=== PATIENT | male | born 1935 | race Asian ===

== ENCOUNTER 2017-08-07 14:37 | Inpatient (IN) | payer OTHER ==
[~2017-08-07] VITALS: Ht 160 cm; Wt 41.3 kg
[~2017-08-07 14:37] MED LIST: ACTOS30 MG PO; AGGRENOX1 CAPSULE PO; AMLODIPINE BES2.5 MG PO; ASPIR-TRIN325 M1 PO; ATACAND32 MG PO; AUGMENTIN875 MG PO; CARDURA4 MG PO; CIPRO500 M1 PO; ENABLEX15 MG PO; FINASTERIDE5 MG PO; JANUVIA25 M1 PO; LEVAQUIN750 MG PO; LOSARTAN POTASS50 MG PO; Levaquin PO; Lopressor PO
[2017-08-07 15:00] LABS: ADD MIUA? YES; BILIRUBIN NEGATIVE; BLOOD LARGE; COLOR YELLOW ((YELLOW)); GLUCOSE (STRIP) NEGATIVE; KETONES NEGATIVE; LEUKOCYTES LARGE; NITRITE POSITIVE; PROTEIN (STRIP) 100; SPECIFIC GRAVITY 1.019 (1.000-1.030); UROBILINOGEN 0.2 MG/DL (0.2-1.0)
[2017-08-07 15:14] LABS: BACTERIA 3+ /HPF; CASTS PRESENT /LPF; CRYSTALS NONE SEEN; EPITHELIAL CELLS 1+ /HPF; HYALINE CASTS 0-5 /LPF; MUCUS 1+ /LPF; RED BLOOD CELLS TNTC /HPF (0-5); UCUL ADDED? YES; WHITE BLOOD CELLS TNTC /HPF (0-5)
[2017-08-07 15:49] LABS: HEMATOCRIT 28.4 % (38.0-50.0); MCHC 32.4 G/DL (30.0-36.0); MCV 89.6 FL (86-99); MEAN PLAT.VOLUME 10.2 uM^3 (9.0-12.4); PLATELET COUNT 167 K/uL (156-360); RBC DIS.WIDTH-CV 13.2 % (11.8-14.6); RBC DIS.WIDTH-SD 43.3 % (39-53); RED BLOOD COUNT 3.17 M/uL (4.00-5.50); WHITE BLOOD COUNT 9.1 K/uL (4.1-10.2)
[2017-08-07 15:57] LABS: CHLORIDE 108 mEq/L (99-109); POTASSIUM 3.5 mEq/L (3.7-5.4); SODIUM 144 mEq/L (136-147)
[2017-08-07 15:58] LABS: GLUCOSE 111 mg/dL (70-99)
[2017-08-07 16:00] LABS: ANION GAP 11 MEQ/L (2-14)
[2017-08-07 16:02] LABS: GFR ESTIMATE (CALCULATED) 41 mL/min/
[2017-08-07 16:03] LABS: UREA NITROGEN (BUN) 31 mg/dL (9-23)
[2017-08-07] MEDS ORDERED: TRAMADOL HCL50 MG PO (17:53)
[2017-08-07] MEDS ORDERED: ATARAX,VISTARIL25 MG PO (17:53)
[2017-08-07] MEDS ORDERED: DIPYRIDAMOLE75 MG PO (17:53)
[2017-08-07] MEDS ORDERED: MYRBETRIQ50 MG PO (17:53)
[2017-08-07] MEDS ORDERED: MIRALAX255 GM PO (17:53)
[2017-08-07 23:43] VITALS: BP 158/84
[2017-08-08 03:38] VITALS: BP 159/75
[2017-08-08 06:47] LABS: MCH 28.7 PG (29.0-34.0); MCHC 31.7 G/DL (30.0-36.0); MCV 90.3 FL (86-99); MEAN PLAT.VOLUME 10.7 uM^3 (9.0-12.4); PLATELET COUNT 174 K/uL (156-360); RBC DIS.WIDTH-CV 13.4 % (11.8-14.6); RBC DIS.WIDTH-SD 44.2 % (39-53); RED BLOOD COUNT 3.21 M/uL (4.00-5.50); WHITE BLOOD COUNT 9.7 K/uL (4.1-10.2)
[2017-08-08 07:12] LABS: ANION GAP 11 MEQ/L (2-14); CHLORIDE 108 MEQ/L (99-109); GFR ESTIMATE (CALCULATED) 56 mL/min/; GLUCOSE 119 mg/dL (70-99); POTASSIUM 3.5 MEQ/L (3.7-5.4); SAMPLE HEMOLYSIS CHECK 0; SAMPLE ICTERIC CHECK 0; SAMPLE LIPEMIA CHECK 0; SODIUM 145 MEQ/L (136-147); UREA NITROGEN (BUN) 25 mg/dL (9-23)
[2017-08-08 07:44] LABS: ABS NEUTROPHIL COUNT 8.8; ANISOCYTOSIS 1+; BAND NEUTROPHILS 22.6 % (0-8.0); BASOPHILS 0.9 %; EOSINOPHIL ABS CT 0; INSTRUMENT ABS NEUTROPHIL CT 8.6 K/uL; OVALOCYTES 1+; PLAT.SUFFICIENCY ADEQUATE; POIKILOCYTOSIS 1+; SEG.NEUTROPHILS 67.8 % (46.0-76.0)
[2017-08-08 08:08] LABS: MAGNESIUM 2.3 mg/dl (1.3-2.7)
[2017-08-08 08:24] VITALS: BP 170/82
[2017-08-08 12:37] VITALS: BP 130/87
[2017-08-08 12:51] LABS: POINT-OF-CARE METER ID UU14208753
[2017-08-08 16:18] LABS: POINT-OF-CARE METER ID UU14208753
[2017-08-08 16:24] VITALS: BP 134/77
[2017-08-08 19:31] VITALS: BP 187/83
[2017-08-08 19:41] VITALS: BP 150/80
[2017-08-08 21:53] LABS: POINT-OF-CARE METER ID UU14188577
[2017-08-09] VITALS (7 sets, daily range): BP systolic 133–178; BP diastolic 65–91
[2017-08-09 06:29] LABS: HEMATOCRIT 26.7 % (38.0-50.0); MCH 29.9 PG (29.0-34.0); MCHC 32.6 G/DL (30.0-36.0); MCV 91.8 FL (86-99); MEAN PLAT.VOLUME 10.1 uM^3 (9.0-12.4); PLATELET COUNT 145 K/uL (156-360); RBC DIS.WIDTH-CV 13.6 % (11.8-14.6); RBC DIS.WIDTH-SD 45.9 % (39-53); RED BLOOD COUNT 2.91 M/uL (4.00-5.50); WHITE BLOOD COUNT 11.4 K/uL (4.1-10.2)
[2017-08-09 06:50] LABS: ANION GAP 9 MEQ/L (2-14); CHLORIDE 112 MEQ/L (99-109); POTASSIUM 3.5 MEQ/L (3.7-5.4); SAMPLE HEMOLYSIS CHECK 0; SAMPLE ICTERIC CHECK 0; SAMPLE LIPEMIA CHECK 0; SODIUM 147 MEQ/L (136-147)
[2017-08-09 06:55] LABS: GFR ESTIMATE (CALCULATED) 52 mL/min/; GLUCOSE 128 mg/dL (70-99); UREA NITROGEN (BUN) 31 mg/dL (9-23)
[2017-08-09 06:59] LABS: POINT-OF-CARE METER ID UU14188577
[2017-08-09 11:41] LABS: POINT-OF-CARE METER ID UU14117124
[2017-08-09 16:31] LABS: POINT-OF-CARE METER ID UU14117124
[2017-08-09 16:38] LABS: MAGNESIUM 2.3 mg/dl (1.3-2.7); POTASSIUM 3.4 MEQ/L (3.7-5.4)
[2017-08-09 21:42] LABS: POINT-OF-CARE METER ID UU14208753
[2017-08-10 03:43] VITALS: BP 170/86
[2017-08-10 07:00] LABS: POINT-OF-CARE METER ID UU14117124
[2017-08-10 08:23] VITALS: BP 162/80
[2017-08-10 10:01] LABS: ANION GAP 10 MEQ/L (2-14); CHLORIDE 114 MEQ/L (99-109); GFR ESTIMATE (CALCULATED) > 59 mL/min/; GLUCOSE 178 mg/dL (70-99); POTASSIUM 3.3 MEQ/L (3.7-5.4); SAMPLE HEMOLYSIS CHECK 0; SAMPLE ICTERIC CHECK 0; SAMPLE LIPEMIA CHECK 0; SODIUM 151 MEQ/L (136-147); UREA NITROGEN (BUN) 25 mg/dL (9-23)
[2017-08-10 11:18] LABS: POINT-OF-CARE METER ID UU14208753
[2017-08-10 15:12] VITALS: BP 163/78
[2017-08-10 16:22] LABS: POINT-OF-CARE METER ID UU14117124
[2017-08-10 20:27] VITALS: BP 172/83
[2017-08-10 21:39] LABS: POINT-OF-CARE METER ID UU14188577
[2017-08-10 23:20] VITALS: BP 170/88
[2017-08-11] VITALS (7 sets, daily range): BP systolic 140–200; BP diastolic 77–97
[2017-08-11 06:13] LABS: EOSINOPHIL (%) 0.8 % (0-5); EOSINOPHIL COUNT 0.1 K/uL (0-0.3); HEMATOCRIT 27.4 % (38.0-50.0); IMMATURE GRANULOCYTE COUNT 0.1 K/uL; INSTRUMENT ABS NEUTROPHIL CT 6.9 K/uL; LYMPHOCYTE COUNT 0.6 K/uL (1.0-2.8); MCH 29.8 PG (29.0-34.0); MCHC 32.1 G/DL (30.0-36.0); MCV 92.9 FL (86-99); MEAN PLAT.VOLUME 10.7 uM^3 (9.0-12.4); MONOCYTE (%) 9.3 % (3-12); MONOCYTE COUNT 0.8 K/uL (0-0.8); NEUTROPHIL (%) 82.3 % (45-76); NEUTROPHIL COUNT 6.9 K/uL (1.8-6.4); NRBC (%) 0.2 /100 WBC (0-0); PLATELET COUNT 160 K/uL (156-360); RBC DIS.WIDTH-CV 13.4 % (11.8-14.6); RED BLOOD COUNT 2.95 M/uL (4.00-5.50); WHITE BLOOD COUNT 8.4 K/uL (4.1-10.2)
[2017-08-11 06:29] LABS: ANION GAP 11 MEQ/L (2-14); CHLORIDE 111 MEQ/L (99-109); POTASSIUM 3.2 MEQ/L (3.7-5.4); SAMPLE HEMOLYSIS CHECK 0; SAMPLE ICTERIC CHECK 0; SAMPLE LIPEMIA CHECK 0; SODIUM 147 MEQ/L (136-147)
[2017-08-11 06:34] LABS: GFR ESTIMATE (CALCULATED) > 59 mL/min/; GLUCOSE 163 mg/dL (70-99); UREA NITROGEN (BUN) 18 mg/dL (9-23)
[2017-08-11 06:40] LABS: POINT-OF-CARE METER ID UU14117124
[2017-08-11 11:26] LABS: POINT-OF-CARE METER ID UU14208753
[2017-08-11 21:32] LABS: POINT-OF-CARE METER ID UU14117124; POINT-OF-CARE USER ID AHSUCEG
[2017-08-12] VITALS (7 sets, daily range): BP systolic 145–184; BP diastolic 77–88
[2017-08-12 06:38] LABS: POINT-OF-CARE METER ID UU14208753
[2017-08-12 10:01] LABS: EOSINOPHIL (%) 0.5 % (0-5); HEMATOCRIT 26.6 % (38.0-50.0); IMMATURE GRANULOCYTE COUNT 0.1 K/uL; INSTRUMENT ABS NEUTROPHIL CT 6.6 K/uL; LYMPHOCYTE COUNT 0.8 K/uL (1.0-2.8); MCH 28.5 PG (29.0-34.0); MCHC 31.6 G/DL (30.0-36.0); MCV 90.2 FL (86-99); MEAN PLAT.VOLUME 10.4 uM^3 (9.0-12.4); MONOCYTE (%) 9.8 % (3-12); MONOCYTE COUNT 0.8 K/uL (0-0.8); NEUTROPHIL (%) 79.3 % (45-76); NEUTROPHIL COUNT 6.6 K/uL (1.8-6.4); PLATELET COUNT 151 K/uL (156-360); RBC DIS.WIDTH-CV 13.2 % (11.8-14.6); RBC DIS.WIDTH-SD 43.5 % (39-53); RED BLOOD COUNT 2.95 M/uL (4.00-5.50); WHITE BLOOD COUNT 8.4 K/uL (4.1-10.2)
[2017-08-12 10:47] LABS: ANION GAP 6 MEQ/L (2-14); CHLORIDE 108 MEQ/L (99-109); GFR ESTIMATE (CALCULATED) > 59 mL/min/; GLUCOSE 158 mg/dL (70-99); POTASSIUM 3.3 MEQ/L (3.7-5.4); SAMPLE HEMOLYSIS CHECK 0; SAMPLE ICTERIC CHECK 0; SAMPLE LIPEMIA CHECK 0; SODIUM 141 MEQ/L (136-147); UREA NITROGEN (BUN) 16 mg/dL (9-23)
[2017-08-12 10:57] LABS: IRON 11 MCG/DL (35-150)
[2017-08-13 04:15] VITALS: BP 149/74
[2017-08-13 07:01] LABS: EOSINOPHIL (%) 0.9 % (0-5); EOSINOPHIL COUNT 0.1 K/uL (0-0.3); HEMATOCRIT 25.7 % (38.0-50.0); IMMATURE GRANULOCYTE COUNT 0.1 K/uL; INSTRUMENT ABS NEUTROPHIL CT 6.3 K/uL; LYMPHOCYTE COUNT 0.6 K/uL (1.0-2.8); MCH 30.1 PG (29.0-34.0); MCHC 33.5 G/DL (30.0-36.0); MCV 89.9 FL (86-99); MEAN PLAT.VOLUME 10.2 uM^3 (9.0-12.4); MONOCYTE (%) 8.2 % (3-12); MONOCYTE COUNT 0.6 K/uL (0-0.8); NEUTROPHIL (%) 82.5 % (45-76); NEUTROPHIL COUNT 6.3 K/uL (1.8-6.4); PLATELET COUNT 152 K/uL (156-360); RBC DIS.WIDTH-CV 13.3 % (11.8-14.6); RED BLOOD COUNT 2.86 M/uL (4.00-5.50); WHITE BLOOD COUNT 7.7 K/uL (4.1-10.2)
[2017-08-13 07:29] LABS: POINT-OF-CARE METER ID UU14117124
[2017-08-13 07:30] LABS: ANION GAP 5 MEQ/L (2-14); CHLORIDE 109 MEQ/L (99-109); GFR ESTIMATE (CALCULATED) > 59 mL/min/; GLUCOSE 205 mg/dL (70-99); SAMPLE HEMOLYSIS CHECK 0; SAMPLE ICTERIC CHECK 0; SAMPLE LIPEMIA CHECK 0; SODIUM 139 MEQ/L (136-147); UREA NITROGEN (BUN) 20 mg/dL (9-23)
[2017-08-13 07:34] LABS: POTASSIUM 4.4 MEQ/L (3.7-5.4)
[2017-08-13 07:48] VITALS: BP 157/74
[2017-08-13 11:31] LABS: POINT-OF-CARE METER ID UU14188577
[2017-08-13 11:33] VITALS: BP 129/64
[2017-08-13 15:17] VITALS: BP 111/58
[2017-08-13 16:10] LABS: POINT-OF-CARE METER ID UU14188577
[2017-08-13 19:48] VITALS: BP 148/65
[2017-08-13 22:28] LABS: POINT-OF-CARE METER ID UU14117124
[2017-08-13 23:27] VITALS: BP 149/69
[2017-08-14 00:24] LABS: POINT-OF-CARE METER ID UU14117124
[2017-08-14 06:18] LABS: POINT-OF-CARE METER ID UU14117124
[2017-08-14 07:48] VITALS: BP 170/75
[2017-08-14 11:45] VITALS: BP 153/73
[2017-08-14 16:55] VITALS: BP 160/75
[2017-08-14 19:31] VITALS: BP 163/73
[2017-08-14 21:59] LABS: POINT-OF-CARE METER ID UU14188577
[2017-08-14 23:19] VITALS: BP 150/82
[2017-08-15 00:30] LABS: POINT-OF-CARE METER ID UU14117124
[2017-08-15 06:53] LABS: POINT-OF-CARE METER ID UU14188577
[2017-08-15 08:09] VITALS: BP 160/79
[2017-08-15 09:44] LABS: EOSINOPHIL (%) 2.6 % (0-5); EOSINOPHIL COUNT 0.2 K/uL (0-0.3); HEMATOCRIT 24.4 % (38.0-50.0); IMMATURE GRANULOCYTE (%) 0.8 % (0.0-0.7); IMMATURE GRANULOCYTE COUNT 0.1 K/uL; INSTRUMENT ABS NEUTROPHIL CT 5.2 K/uL; LYMPHOCYTE COUNT 0.7 K/uL (1.0-2.8); MCH 28.8 PG (29.0-34.0); MEAN PLAT.VOLUME 9.9 uM^3 (9.0-12.4); MONOCYTE (%) 6.1 % (3-12); MONOCYTE COUNT 0.4 K/uL (0-0.8); NEUTROPHIL (%) 80.2 % (45-76); NEUTROPHIL COUNT 5.2 K/uL (1.8-6.4); RBC DIS.WIDTH-CV 13.6 % (11.8-14.6); RBC DIS.WIDTH-SD 44.6 % (39-53); RED BLOOD COUNT 2.71 M/uL (4.00-5.50); WHITE BLOOD COUNT 6.4 K/uL (4.1-10.2)
[2017-08-15 10:00] LABS: ANION GAP 7 MEQ/L (2-14); CHLORIDE 109 MEQ/L (99-109); GFR ESTIMATE (CALCULATED) > 59 mL/min/; GLUCOSE 185 mg/dL (70-99); POTASSIUM 3.7 MEQ/L (3.7-5.4); SAMPLE HEMOLYSIS CHECK 0; SAMPLE ICTERIC CHECK 0; SAMPLE LIPEMIA CHECK 0; SODIUM 144 MEQ/L (136-147); UREA NITROGEN (BUN) 16 mg/dL (9-23)
[2017-08-15 10:10] LABS: PLATELET COUNT 225 K/uL (156-360)
[2017-08-15 12:34] LABS: POINT-OF-CARE METER ID UU14208753
[2017-08-15 18:18] LABS: POINT-OF-CARE METER ID UU14188577
[2017-08-15 23:57] VITALS: BP 153/72
[2017-08-16 07:30] VITALS: BP 136/67
[2017-08-16 08:03] VITALS: BP 127/67
[2017-08-16 11:23] LABS: HEMATOCRIT 24.5 % (38.0-50.0); MCH 29.2 PG (29.0-34.0); MCHC 32.2 G/DL (30.0-36.0); MCV 90.4 FL (86-99); MEAN PLAT.VOLUME 9.9 uM^3 (9.0-12.4); PLATELET COUNT 260 K/uL (156-360); RBC DIS.WIDTH-CV 13.8 % (11.8-14.6); RBC DIS.WIDTH-SD 45.1 % (39-53); RED BLOOD COUNT 2.71 M/uL (4.00-5.50)
[2017-08-16 11:32] VITALS: BP 152/74
[2017-08-16 12:48] LABS: POINT-OF-CARE METER ID UU14117124
[2017-08-16 12:49] LABS: ALKALINE PHOSPHATASE 79 IU/L (3-129); ANION GAP 8 MEQ/L (2-14); CHLORIDE 107 MEQ/L (99-109); GFR ESTIMATE (CALCULATED) > 59 mL/min/; GLUCOSE 143 mg/dL (70-99); POTASSIUM 3.9 MEQ/L (3.7-5.4); SAMPLE HEMOLYSIS CHECK 0; SAMPLE ICTERIC CHECK 0; SAMPLE LIPEMIA CHECK 0; SODIUM 143 MEQ/L (136-147); TOTAL BILIRUBIN 0.3 MG/DL (0.0-1.0); UREA NITROGEN (BUN) 16 mg/dL (9-23)
[2017-08-16 16:11] VITALS: BP 151/71
[2017-08-16 18:18] LABS: POINT-OF-CARE METER ID UU14117124
[2017-08-16 20:41] LABS: HEMATOCRIT 24.1 % (38.0-50.0); MCV 91.3 FL (86-99)
[2017-08-17 00:15] VITALS: BP 121/62
[2017-08-17 07:06] LABS: EOSINOPHIL (%) 1.8 % (0-5); EOSINOPHIL COUNT 0.2 K/uL (0-0.3); HEMATOCRIT 25.4 % (38.0-50.0); IMMATURE GRANULOCYTE (%) 0.8 % (0.0-0.7); IMMATURE GRANULOCYTE COUNT 0.1 K/uL; INSTRUMENT ABS NEUTROPHIL CT 7.2 K/uL; LYMPHOCYTE COUNT 0.7 K/uL (1.0-2.8); MCH 28.6 PG (29.0-34.0); MCHC 31.5 G/DL (30.0-36.0); MCV 90.7 FL (86-99); MEAN PLAT.VOLUME 10.4 uM^3 (9.0-12.4); MONOCYTE (%) 6.1 % (3-12); MONOCYTE COUNT 0.5 K/uL (0-0.8); NEUTROPHIL (%) 82.6 % (45-76); NEUTROPHIL COUNT 7.2 K/uL (1.8-6.4); PLATELET COUNT 291 K/uL (156-360); RBC DIS.WIDTH-CV 13.5 % (11.8-14.6); RBC DIS.WIDTH-SD 44.9 % (39-53); WHITE BLOOD COUNT 8.7 K/uL (4.1-10.2)
[2017-08-17 07:21] VITALS: BP 166/86
[2017-08-17 07:29] LABS: ANION GAP 5 MEQ/L (2-14); CHLORIDE 104 MEQ/L (99-109); GFR ESTIMATE (CALCULATED) > 59 mL/min/; GLUCOSE 183 mg/dL (70-99); POTASSIUM 3.8 MEQ/L (3.7-5.4); SAMPLE HEMOLYSIS CHECK 0; SAMPLE ICTERIC CHECK 0; SAMPLE LIPEMIA CHECK 0; SODIUM 140 MEQ/L (136-147); UREA NITROGEN (BUN) 16 mg/dL (9-23)
[2017-08-17 07:48] LABS: POINT-OF-CARE METER ID UU14208753
[2017-08-17 09:44] LABS: POINT-OF-CARE METER ID UU14208753
[2017-08-17 12:53] LABS: POINT-OF-CARE METER ID UU14117124
[2017-08-17] MEDS ORDERED: AMOX TR-K400 MG/5 M GT (14:33)
== END 2017-08-17 17:30 | disposition home health service (06) | DRG 871 ==
LOC: EME 14:37 → 3EAST 21:15 → EDOF 21:15 → ENRESERV 21:17 → 3EAST 22:55
PROVIDERS: Hospitalist; Internal Medicine; Physician Assistant
PROC: 0DH63UZ Insertion of Feeding Device into Stomach, Percutaneous Approach (ICD-10-PCS; principal; 2017-08-11)
DX: A41.9 Sepsis, unspecified organism (principal); J69.0 Pneumonitis due to inhalation of food and vomit; N17.9 Acute kidney failure, unspecified; G93.41 Metabolic encephalopathy; N10 Acute pyelonephritis; E86.0 Dehydration; T83.511A Infection and inflammatory reaction due to indwelling urethral catheter, initial encounter; L89.322 Pressure ulcer of left buttock, stage 2; I69.320 Aphasia following cerebral infarction; E87.6 Hypokalemia; E43 Unspecified severe protein-calorie malnutrition; D50.9 Iron deficiency anemia, unspecified; R13.10 Dysphagia, unspecified; Z68.1 Body mass index [BMI] 19.9 or less, adult; J02.0 Streptococcal pharyngitis; I69.354 Hemiplegia and hemiparesis following cerebral infarction affecting left non-dominant side; E11.9 Type 2 diabetes mellitus without complications; Y84.6 Urinary catheterization as the cause of abnormal reaction of the patient, or of later complication, without mention of misadventure at the time of the procedure; Z51.5 Encounter for palliative care; R64 Cachexia; Z66 Do not resuscitate; I11.9 Hypertensive heart disease without heart failure; E87.0 Hyperosmolality and hypernatremia; N31.9 Neuromuscular dysfunction of bladder, unspecified; I47.2 Ventricular tachycardia; N40.0 Benign prostatic hyperplasia without lower urinary tract symptoms; Z74.01 Bed confinement status; Z87.891 Personal history of nicotine dependence; Z87.01 Personal history of pneumonia (recurrent)
CPT/HCPCS: 71010; 80048; 80053; 80170; 81003; 82607; 82746; 82948; 83540; 83605; 83735; 84132 91; 84466; 85014; 85018; 85025; 85027; 87040; 87086; 92526 GN; 92610 GN; 93005; 94799; 99281; 99285; J0360; J0696; J1580; J1644; J1815; J2543; J3480; J7030; J7050; J7070; J7120; Q0138

== ENCOUNTER 2018-03-30 14:40 | Inpatient (IN) | payer OTHER ==
[~2018-03-30] VITALS: Ht 162.6 cm; Wt 49.6 kg
[~2018-03-30 14:40] MED LIST changes: +AMOX TR-K400 MG/5 M GT; +ATARAX,VISTARIL25 MG PO; +DIPYRIDAMOLE75 MG PO; +MIRALAX255 GM PO; +MYRBETRIQ50 MG PO; +TRAMADOL HCL50 MG PO
[2018-03-30 15:31] LABS: BASOPHIL (%) 0.3 % (0-1); BASOPHIL COUNT 0.1 K/uL (0-0.1); EOSINOPHIL (%) 0.6 % (0-5); EOSINOPHIL COUNT 0.1 K/uL (0-0.3); HEMATOCRIT 32.8 % (38.0-50.0); HEMOGLOBIN 11.3 G/DL (12.5-16.6); IMMATURE GRANULOCYTE (%) 0.6 % (0.0-0.7); LYMPHOCYTE COUNT 0.6 K/uL (1.0-2.8); MCH 30.3 PG (29.0-34.0); MCHC 34.5 G/DL (30.0-36.0); MCV 87.9 FL (86-99); MONOCYTE (%) 8.7 % (3-12); MONOCYTE COUNT 1.3 K/uL (0-0.8); NEUTROPHIL (%) 85.8 % (45-76); NEUTROPHIL COUNT 13.1 K/uL (1.8-6.4); PLATELET COUNT 228 K/uL (156-360); RBC DIS.WIDTH-CV 14.1 % (11.8-14.6); RBC DIS.WIDTH-SD 45.2 % (39-53); RED BLOOD COUNT 3.73 M/uL (4.00-5.50); WHITE BLOOD COUNT 15.2 K/uL (4.1-10.2)
[2018-03-30 15:49] LABS: CHLORIDE 99 mEq/L (99-109); POTASSIUM 3.5 mEq/L (3.7-5.4); SODIUM 138 mEq/L (136-147)
[2018-03-30 15:50] LABS: GLUCOSE 144 mg/dL (70-99)
[2018-03-30 15:54] LABS: CREATININE 0.9 mg/dL (0.6-1.3); GFR ESTIMATE (CALCULATED) > 59 mL/min/ (58.99-99999)
[2018-03-30 15:55] LABS: UREA NITROGEN (BUN) 24 mg/dL (9-23)
[2018-03-30 16:21] LABS: APPEARANCE SL CLOUDY ((CLEAR)); COLOR STRAW ((YELLOW)); GLUCOSE (STRIP) NEGATIVE; KETONES NEGATIVE; LEUKOCYTES MODERATE; NITRITE NEGATIVE; PH, URINE 7.5 (5-8); PROTEIN (STRIP) 100; UROBILINOGEN 0.2 MG/DL (0.2-1.0)
[2018-03-30 16:22] LABS: BILIRUBIN NEGATIVE; BLOOD LARGE
[2018-03-30 16:54] LABS: RED BLOOD CELLS RARE /HPF (0-5)
[2018-03-30 16:58] LABS: BACTERIA 1+ /HPF; UCUL ADDED? YES
[2018-03-30 16:59] LABS: AMORPHOUS PHOSPHATE CRYSTALS 2+; EPITHELIAL CELLS RARE /HPF; HYALINE CASTS RARE /LPF; MUCUS 1+ /LPF
[2018-03-30] MEDS ORDERED: BYDUREON2 MG SC (17:28)
[2018-03-30] MEDS ORDERED: TYLENOL EXTRA500 MG PO ×2 (17:28→17:29)
[2018-03-30] MEDS ORDERED: ULTRAM50 MG PO (17:29)
[2018-03-30 18:27] VITALS: BP 105/60
[2018-03-30 21:08] VITALS: BP 141/81
[2018-03-30 23:36] VITALS: BP 127/70
[2018-03-31 03:44] VITALS: BP 136/69
[2018-03-31 05:17] LABS: HEMATOCRIT 29.6 % (38.0-50.0); HEMOGLOBIN 9.7 G/DL (12.5-16.6); MCH 29.4 PG (29.0-34.0); MCHC 32.8 G/DL (30.0-36.0); MCV 89.7 FL (86-99); PLATELET COUNT 189 K/uL (156-360); RBC DIS.WIDTH-CV 14.6 % (11.8-14.6); RBC DIS.WIDTH-SD 47.6 % (39-53); WHITE BLOOD COUNT 11.8 K/uL (4.1-10.2)
[2018-03-31 05:46] LABS: ALBUMIN 2.7 G/DL (3.2-4.8); ALKALINE PHOSPHATASE 78 IU/L (3-129); ALT (GPT) 14 IU/L (3-49); AST (GOT) 21 IU/L (2-34); CHLORIDE 103 MEQ/L (99-109); CREATININE 0.9 MG/DL (0.6-1.3); GFR ESTIMATE (CALCULATED) > 59 mL/min/ (58.99-99999); GLUCOSE 129 mg/dL (70-99); POTASSIUM 3.8 MEQ/L (3.7-5.4); SODIUM 138 MEQ/L (136-147); TOTAL BILIRUBIN 0.9 MG/DL (0.0-1.0); TOTAL PROTEIN 6.6 G/DL (6.4-8.3); UREA NITROGEN (BUN) 23 mg/dL (9-23)
[2018-03-31 08:40] VITALS: BP 116/65
[2018-03-31 11:36] VITALS: BP 126/66
[2018-03-31 16:40] VITALS: BP 133/77
[2018-03-31 19:50] VITALS: BP 153/81
[2018-04-01 00:55] VITALS: BP 149/77
[2018-04-01 05:25] VITALS: BP 134/73
[2018-04-01 05:25] LABS: BASOPHIL (%) 0.3 % (0-1); EOSINOPHIL COUNT 0.1 K/uL (0-0.3); HEMATOCRIT 24.1 % (38.0-50.0); HEMOGLOBIN 7.9 G/DL (12.5-16.6); IMMATURE GRANULOCYTE (%) 0.6 % (0.0-0.7); LYMPHOCYTE (%) 14.1 % (15-42); MCHC 32.8 G/DL (30.0-36.0); MCV 91.6 FL (86-99); MONOCYTE (%) 11.4 % (3-12); MONOCYTE COUNT 0.8 K/uL (0-0.8); NEUTROPHIL (%) 71.6 % (45-76); NRBC (%) 0.3 /100 WBC (0-0); PLATELET COUNT 155 K/uL (156-360); RBC DIS.WIDTH-CV 14.6 % (11.8-14.6); RBC DIS.WIDTH-SD 48.8 % (39-53)
[2018-04-01 05:34] LABS: RED BLOOD COUNT 2.63 M/uL (4.00-5.50)
[2018-04-01 06:10] LABS: ALBUMIN 2.6 G/DL (3.2-4.8); ALKALINE PHOSPHATASE 71 IU/L (3-129); ALT (GPT) 12 IU/L (3-49); AST (GOT) 18 IU/L (2-34); CHLORIDE 108 MEQ/L (99-109); CREATININE 0.7 MG/DL (0.6-1.3); GFR ESTIMATE (CALCULATED) > 59 mL/min/ (58.99-99999); GLUCOSE 154 mg/dL (70-99); POTASSIUM 3.4 MEQ/L (3.7-5.4); SODIUM 138 MEQ/L (136-147); TOTAL PROTEIN 5.9 G/DL (6.4-8.3); UREA NITROGEN (BUN) 20 mg/dL (9-23)
[2018-04-01 06:13] LABS: TOTAL BILIRUBIN 0.4 MG/DL (0.0-1.0)
[2018-04-01 07:29] VITALS: BP 146/70
[2018-04-01 10:59] LABS: PREALBUMIN 9.4 mg/dL (10-40)
[2018-04-01 12:24] VITALS: BP 152/78
[2018-04-01 15:47] VITALS: BP 172/89
[2018-04-01 20:12] VITALS: BP 159/81
[2018-04-02] VITALS: BP 180/90
[2018-04-02 04:00] VITALS: BP 170/92
[2018-04-02 05:36] LABS: BASOPHIL (%) 0.1 % (0-1); EOSINOPHIL (%) 2.5 % (0-5); EOSINOPHIL COUNT 0.2 K/uL (0-0.3); HEMATOCRIT 28.7 % (38.0-50.0); HEMOGLOBIN 9.3 G/DL (12.5-16.6); IMMATURE GRANULOCYTE (%) 0.6 % (0.0-0.7); LYMPHOCYTE (%) 14.3 % (15-42); MCHC 32.4 G/DL (30.0-36.0); MCV 89.4 FL (86-99); MONOCYTE (%) 9.4 % (3-12); MONOCYTE COUNT 0.7 K/uL (0-0.8); NEUTROPHIL (%) 73.1 % (45-76); NEUTROPHIL COUNT 5.3 K/uL (1.8-6.4); PLATELET COUNT 180 K/uL (156-360); RBC DIS.WIDTH-CV 13.9 % (11.8-14.6); RBC DIS.WIDTH-SD 45.9 % (39-53); WHITE BLOOD COUNT 7.3 K/uL (4.1-10.2)
[2018-04-02 05:43] LABS: RED BLOOD COUNT 3.21 M/uL (4.00-5.50)
[2018-04-02 06:16] LABS: ALBUMIN 2.7 G/DL (3.2-4.8); ALKALINE PHOSPHATASE 80 IU/L (3-129); ALT (GPT) 13 IU/L (3-49); AST (GOT) 20 IU/L (2-34); CHLORIDE 108 MEQ/L (99-109); CREATININE 0.6 MG/DL (0.6-1.3); GFR ESTIMATE (CALCULATED) > 59 mL/min/ (58.99-99999); POTASSIUM 3.4 MEQ/L (3.7-5.4); SODIUM 140 MEQ/L (136-147); TOTAL PROTEIN 6.3 G/DL (6.4-8.3); UREA NITROGEN (BUN) 11 mg/dL (9-23)
[2018-04-02 06:17] LABS: GLUCOSE 99 mg/dL (70-99); TOTAL BILIRUBIN 0.5 MG/DL (0.0-1.0)
[2018-04-02 08:00] VITALS: BP 160/97
[2018-04-02 12:38] VITALS: BP 147/96
[2018-04-02 18:11] VITALS: BP 139/90
[2018-04-02 19:46] VITALS: BP 153/94
[2018-04-03] VITALS: BP 105/62
[2018-04-03 03:57] VITALS: BP 122/75
[2018-04-03 06:01] LABS: HEMATOCRIT 28.2 % (38.0-50.0); MCH 28.8 PG (29.0-34.0); MCHC 31.9 G/DL (30.0-36.0); MCV 90.4 FL (86-99); PLATELET COUNT 216 K/uL (156-360); RBC DIS.WIDTH-CV 14.2 % (11.8-14.6); RED BLOOD COUNT 3.12 M/uL (4.00-5.50); WHITE BLOOD COUNT 5.5 K/uL (4.1-10.2)
[2018-04-03 06:16] LABS: CHLORIDE 106 MEQ/L (99-109); CREATININE 0.9 MG/DL (0.6-1.3); GFR ESTIMATE (CALCULATED) > 59 mL/min/ (58.99-99999); GLUCOSE 144 mg/dL (70-99); POTASSIUM 3.5 MEQ/L (3.7-5.4); SODIUM 137 MEQ/L (136-147); UREA NITROGEN (BUN) 13 mg/dL (9-23)
[2018-04-03 07:59] VITALS: BP 122/71
[2018-04-03 17:00] VITALS: BP 128/75
[2018-04-03 20:17] VITALS: BP 159/86
[2018-04-04 00:27] VITALS: BP 131/77
[2018-04-04 06:51] LABS: HEMATOCRIT 27.2 % (38.0-50.0); HEMOGLOBIN 8.9 G/DL (12.5-16.6); MCH 29.3 PG (29.0-34.0); MCHC 32.7 G/DL (30.0-36.0); MCV 89.5 FL (86-99); PLATELET COUNT 222 K/uL (156-360); RBC DIS.WIDTH-CV 14.3 % (11.8-14.6); RBC DIS.WIDTH-SD 46.5 % (39-53); RED BLOOD COUNT 3.04 M/uL (4.00-5.50); WHITE BLOOD COUNT 5.6 K/uL (4.1-10.2)
[2018-04-04 07:12] LABS: CHLORIDE 106 MEQ/L (99-109); GFR ESTIMATE (CALCULATED) > 59 mL/min/ (58.99-99999); GLUCOSE 111 mg/dL (70-99); POTASSIUM 4.1 MEQ/L (3.7-5.4); SODIUM 137 MEQ/L (136-147); UREA NITROGEN (BUN) 20 mg/dL (9-23)
[2018-04-04 07:22] VITALS: BP 124/67
[2018-04-04] MEDS ORDERED: BACTRIM,SEPTRA S1 ML GT (13:56)
[2018-04-04] MEDS ORDERED: AMLODIPINE BESYL5 MG GT (13:56)
[2018-04-04] MEDS ORDERED: ASPIRIN81 M2 GT (13:56)
[2018-04-04] MEDS ORDERED: LOSARTAN POTASS50 MG GT (13:56)
[2018-04-04] MEDS ORDERED: TRAMADOL HCL50 MG GT ×2 (13:56)
[2018-04-04] MEDS ORDERED: Tylenol GT ×2 (13:56)
[2018-04-04] MEDS ORDERED: LORAZEPAM0.5 MG PO (13:59)
[2018-04-04] MEDS ORDERED: SANTYL30 GM TP (13:59)
[2018-04-04 16:00] VITALS: BP 132/76
== END 2018-04-04 17:29 | disposition home health service (06) | DRG 698 ==
LOC: EME 14:40 → 4EAST 17:07 → EDOF 17:07 → ENRESERV 17:15 → 4EAST 17:55 → ENRESERV 04-01 20:57 → 5SOUTH 04-01 23:25
PROVIDERS: Emergency Medicine; Hospitalist; Internal Medicine; Physician Assistant
PROC: 0HDJXZZ Extraction of Left Upper Leg Skin, External Approach (ICD-10-PCS; principal; 2018-04-04)
PROC: 0HBHXZZ Excision of Right Upper Leg Skin, External Approach (ICD-10-PCS; principal; 2018-04-04)
PROC: 0HDHXZZ Extraction of Right Upper Leg Skin, External Approach (ICD-10-PCS; principal; 2018-04-04)
PROC: 0HBJXZZ Excision of Left Upper Leg Skin, External Approach (ICD-10-PCS; principal; 2018-04-04)
DX: T83.518A Infection and inflammatory reaction due to other urinary catheter, initial encounter (principal); A41.9 Sepsis, unspecified organism; Y84.6 Urinary catheterization as the cause of abnormal reaction of the patient, or of later complication, without mention of misadventure at the time of the procedure; N39.0 Urinary tract infection, site not specified; M24.50 Contracture, unspecified joint; R63.6 Underweight; Z68.1 Body mass index [BMI] 19.9 or less, adult; E87.6 Hypokalemia; I10 Essential (primary) hypertension; I69.354 Hemiplegia and hemiparesis following cerebral infarction affecting left non-dominant side; Z74.01 Bed confinement status; I69.391 Dysphagia following cerebral infarction; R13.10 Dysphagia, unspecified; B95.61 Methicillin susceptible Staphylococcus aureus infection as the cause of diseases classified elsewhere; Z93.1 Gastrostomy status; Z68.21 Body mass index [BMI] 21.0-21.9, adult; F03.90 Unspecified dementia, unspecified severity, without behavioral disturbance, psychotic disturbance, mood disturbance, and anxiety; D64.9 Anemia, unspecified; K86.2 Cyst of pancreas; Z87.440 Personal history of urinary (tract) infections; K59.00 Constipation, unspecified; E11.9 Type 2 diabetes mellitus without complications; Z87.891 Personal history of nicotine dependence; L89.213 Pressure ulcer of right hip, stage 3; L89.220 Pressure ulcer of left hip, unstageable; I71.4 Abdominal aortic aneurysm, without rupture
CPT/HCPCS: 71045; 74022; 74177; 80048; 80053; 81003; 82948; 83605; 84134; 85025; 85027; 87040; 87070; 87075; 87077; 87086 GA; 87147; 87186; 87205; 93005; 99281; 99285; A6214; J0696; J1644; J1815; J2543; J3480; J7030; J7050

== ENCOUNTER 2018-05-18 10:54 | Emergency (ER) | payer OTHER ==
[~2018-05-18] VITALS: Ht 162.6 cm; Wt 45.8 kg
[~2018-05-18 10:54] MED LIST changes: +AMLODIPINE BESYL5 MG GT; +ASPIRIN81 M2 GT; +BACTRIM,SEPTRA S1 ML GT; +BYDUREON2 MG SC; +LORAZEPAM0.5 MG PO; +LOSARTAN POTASS50 MG GT; +SANTYL30 GM TP; +TRAMADOL HCL50 MG GT; +TYLENOL EXTRA500 MG PO; +Tylenol GT; +ULTRAM50 MG PO
[2018-05-18 12:22] LABS: BASOPHIL (%) 0.3 % (0-1); BASOPHIL COUNT 0.1 K/uL (0-0.1); EOSINOPHIL (%) 0.5 % (0-5); EOSINOPHIL COUNT 0.1 K/uL (0-0.3); HEMATOCRIT 32.6 % (38.0-50.0); HEMOGLOBIN 11.2 G/DL (12.5-16.6); IMMATURE GRANULOCYTE (%) 0.5 % (0.0-0.7); LYMPHOCYTE (%) 7.2 % (15-42); LYMPHOCYTE COUNT 1.1 K/uL (1.0-2.8); MCH 30.4 PG (29.0-34.0); MCHC 34.4 G/DL (30.0-36.0); MCV 88.3 FL (86-99); MONOCYTE (%) 5.4 % (3-12); MONOCYTE COUNT 0.8 K/uL (0-0.8); NEUTROPHIL (%) 86.1 % (45-76); NEUTROPHIL COUNT 13.5 K/uL (1.8-6.4); NRBC (%) 0.1 /100 WBC (0-0); PLATELET COUNT 213 K/uL (156-360); RBC DIS.WIDTH-CV 13.6 % (11.8-14.6); RBC DIS.WIDTH-SD 43.8 % (39-53); RED BLOOD COUNT 3.69 M/uL (4.00-5.50); WHITE BLOOD COUNT 15.6 K/uL (4.1-10.2)
[2018-05-18 12:33] LABS: CHLORIDE 96 mEq/L (99-109); POTASSIUM 3.2 mEq/L (3.7-5.4); SODIUM 137 mEq/L (136-147)
[2018-05-18 12:35] LABS: GLUCOSE 154 mg/dL (70-99)
[2018-05-18 12:38] LABS: CREATININE 0.9 mg/dL (0.6-1.3); GFR ESTIMATE (CALCULATED) > 59 mL/min/ (58.99-99999)
[2018-05-18 12:39] LABS: UREA NITROGEN (BUN) 19 mg/dL (9-23)
[2018-05-18 17:53] LABS: APPEARANCE SL.HAZY ((CLEAR)); BILIRUBIN NEGATIVE; BLOOD MODERATE; COLOR YELLOW ((YELLOW)); GLUCOSE (STRIP) NEGATIVE; KETONES NEGATIVE; LEUKOCYTES MODERATE; NITRITE NEGATIVE; PROTEIN (STRIP) 100; SPECIFIC GRAVITY 1.015 (1.000-1.030); UROBILINOGEN 0.2 MG/DL (0.2-1.0)
[2018-05-18 18:04] LABS: BACTERIA NONE SEEN /HPF; CALCIUM OXALATE CRYSTALS 1+ /HPF; EPITHELIAL CELLS NONE SEEN /HPF; MUCUS TRACE /LPF; RED BLOOD CELLS 40-50 /HPF (0-5); WHITE BLOOD CELLS 40-50 /HPF (0-5)
[2018-05-18 20:26] VITALS: BP 136/87
== END 2018-05-18 20:26 | disposition home or self-care (01) ==
LOC: EME 10:54
PROVIDERS: Emergency Medicine
PROC: 0D20XUZ Change Feeding Device in Upper Intestinal Tract, External Approach (ICD-10-PCS; principal; 2018-05-18)
DX: K94.23 Gastrostomy malfunction (principal); N39.0 Urinary tract infection, site not specified; I69.954 Hemiplegia and hemiparesis following unspecified cerebrovascular disease affecting left non-dominant side; E11.9 Type 2 diabetes mellitus without complications; I10 Essential (primary) hypertension; D64.9 Anemia, unspecified; Z85.07 Personal history of malignant neoplasm of pancreas; N40.0 Benign prostatic hyperplasia without lower urinary tract symptoms; Z87.891 Personal history of nicotine dependence; F41.9 Anxiety disorder, unspecified
CPT/HCPCS: 70450; 71045; 75984; 80048; 81003; 85025; 87077; 87086; 87186; 99281; 99283; B4087